=== PATIENT | male | born 1990 | race Caucasian/White ===

== ENCOUNTER → 2018-06-26 | Outpatient (CLI) | payer OTHER ==
--- NOTE | 2018-06-26 15:55 | KCIC ---
EXAM: MRI left shoulder DATE: 06/26/2018 2:45 PM COMPARISON: None available INDICATION: Left shoulder pain following injury TECHNIQUE: Multiplanar, multisequence MRI of the left shoulder was performed without contrast. FINDINGS: No significant AC joint degenerative changes are seen. Type I acromion. No os acromiale. No significant subacromial subdeltoid bursal distention. No glenohumeral joint effusion. Mild increased signal within the distal supraspinatus tendon likely tendinosis. No discrete rotator cuff tear is identified. Normal muscle signal and bulk without fatty atrophy. The extra articular long head biceps tendon is seen within the bicipital groove. Intra-articular long head biceps tendon is normal in signal and morphology. Evaluation for labral tear limited on this arthrographic study, within these constraints no discrete labral tear. A few incidentally noted T1/T2 hypointense foci within the humeral head likely bone islands. No evidence for fracture or AVN. Survey evaluation of the cartilage, intact. IMPRESSION: 1. No evidence for internal derangement of the left shoulder. Electronically signed by: Alfonso Ramirez MD (06/26/2018 3:51 PM) [id number]
== END | disposition home or self-care (01) ==
LOC: KCIC MRI 14:36
PROVIDERS: ATTEND General Practice
DX: S46.912A Strain of unspecified muscle, fascia and tendon at shoulder and upper arm level, left arm, initial encounter (principal); X58.XXXA Exposure to other specified factors, initial encounter; Y93.89 Activity, other specified; Y92.89 Other specified places as the place of occurrence of the external cause; Y99.8 Other external cause status
CPT/HCPCS: 73221